=== PATIENT | female | born 1995 | race Caucasian/White ===

== ENCOUNTER 2021-11-30 12:01 | Outpatient (CLI) | payer OTHER ==
[~2021-11-30] VITALS: Ht 170.2 cm; Wt 152.0 kg
[2021-11-30 14:51] LABS: HEMOGLOBIN 11.1 gm/dl (12.3-15.3); RED BLOOD COUNT 3.94 M/UL (4.00-5.10); WHITE BLOOD COUNT 14.1 K/UL (4.5-11.0)
== END 2021-11-30 16:03 | disposition home or self-care (01) ==
LOC: GENOP 12:01
PROVIDERS: Obstetrics & Gynecology
DX: O41.03X0 Oligohydramnios, third trimester, not applicable or unspecified (principal); O99.213 Obesity complicating pregnancy, third trimester; Z3A.32 32 weeks gestation of pregnancy
CPT/HCPCS: 81001; 85025; 96360; 96361; 96372; J0702

== ENCOUNTER 2021-12-01 09:09 | Outpatient (CLI) | payer OTHER | END 2021-12-01 09:55 | disposition home or self-care (01) | LOC: GENOP 09:09 | DX: O36.8330 Maternal care for abnormalities of the fetal heart rate or rhythm, third trimester, not applicable or unspecified (principal); Z3A.32 32 weeks gestation of pregnancy | CPT/HCPCS: 76815; 96372; J0702 ==

== ENCOUNTER 2022-01-24 16:31 | Inpatient (IN) | payer OTHER ==
[~2022-01-24] VITALS: Ht 170.2 cm; Wt 156.5 kg
[2022-01-24 17:11] LABS: HEMOGLOBIN 12.5 gm/dl (12.3-15.3); RED BLOOD COUNT 4.61 M/UL (4.00-5.10); WHITE BLOOD COUNT 11.5 K/UL (4.5-11.0)
[2022-01-24] MEDS ORDERED: PRENATAL VITAM1 EAC3 PO (17:40)
[2022-01-25] MEDS ORDERED: HYDROCODONE-AC1 EACH PO (23:04)
[2022-01-25] MEDS ORDERED: IBUPROFEN600 MG PO (23:04)
[2022-01-25] MEDS ORDERED: DOCUSATE SODIU250 MG PO (23:04)
[2022-01-26 06:39] LABS: HEMOGLOBIN 9.4 gm/dl (12.3-15.3)
== END 2022-01-27 22:12 | disposition home or self-care (01) | DRG 786 ==
LOC: GENOP 16:31 → OB 16:51
PROVIDERS: Obstetrics & Gynecology; ADMIT Obstetrics & Gynecology
PROC: 10907ZC Drainage of Amniotic Fluid, Therapeutic from Products of Conception, Via Natural or Artificial Opening (ICD-10-PCS; 2022-01-25)
PROC: 4A1HXCZ Monitoring of Products of Conception, Cardiac Rate, External Approach (ICD-10-PCS; 2022-01-25)
PROC: 10H073Z Insertion of Monitoring Electrode into Products of Conception, Via Natural or Artificial Opening (ICD-10-PCS; 2022-01-25)
PROC: 10H07YZ Insertion of Other Device into Products of Conception, Via Natural or Artificial Opening (ICD-10-PCS; 2022-01-25)
PROC: 3E0234Z Introduction of Serum, Toxoid and Vaccine into Muscle, Percutaneous Approach (ICD-10-PCS; 2022-01-25)
PROC: 10D00Z1 Extraction of Products of Conception, Low, Open Approach (ICD-10-PCS; principal; 2022-01-25 22:18)
DX: O62.1 Secondary uterine inertia (principal); O41.1230 Chorioamnionitis, third trimester, not applicable or unspecified; O99.284 Endocrine, nutritional and metabolic diseases complicating childbirth; Z37.0 Single live birth; O48.0 Post-term pregnancy; O99.214 Obesity complicating childbirth; Z3A.40 40 weeks gestation of pregnancy; E66.01 Morbid (severe) obesity due to excess calories; E03.9 Hypothyroidism, unspecified; O76 Abnormality in fetal heart rate and rhythm complicating labor and delivery; Z83.49 Family history of other endocrine, nutritional and metabolic diseases; Z80.8 Family history of malignant neoplasm of other organs or systems; Z82.49 Family history of ischemic heart disease and other diseases of the circulatory system; Z83.3 Family history of diabetes mellitus; Z23 Encounter for immunization
CPT/HCPCS: 81001; 82800; 85014; 85018; 85025; 90471; 90715; C9113; J0290; J0690; J1170; J1580; J2250; J2370; J2405; J2590; J3010